=== PATIENT | male | born 1950 | race African-American/Black ===

== ENCOUNTER → 2016-11-01 | Outpatient (CLI) | payer MEDICARE, MEDICAID ==
[2016-11-01 12:35] LABS: MEAN CELL VOLUME 99.1 FL (80.0-100.0); MEAN CORPUSCULAR HEMOGLOBIN 33.5 PG (27.0-34.0); MEAN CORPUSCULAR HGB CONC 33.8 % (32.0-36.0); PLATELET COUNT 173 TH/MM3 (150-450); RED BLOOD COUNT 4.34 MIL/MM3 (4.50-5.90); RED CELL DISTRIBUTION WIDTH 13.7 % (11.6-17.2); REVIEW FLAG FINAL
[2016-11-01 13:05] LABS: ANION GAP 9 MEQ/L (5-15); AST (GOT) 22 U/L (15-37); BICARBONATE 23.9 MEQ/L (21.0-32.0); BLOOD UREA NITROGEN 18 MG/DL (7-18); CHLORIDE 106 MEQ/L (98-107); GLOMERULAR FILTRATION RATE 75 ML/MIN (>89); GLUCOSE,FASTING 117 MG/DL (74-99); POTASSIUM 3.8 MEQ/L (3.5-5.1); SODIUM (NA) 139 MEQ/L (136-145)
[2016-11-01 13:16] LABS: ALKALINE PHOSPHATASE 61 U/L (45-117); ALT (GPT) 23 U/L (12-78); HDL CHOLESTEROL 60.4 MG/DL (40.0-60.0); LDL CHOLESTEROL 69 MG/DL (0-99); TOTAL BILIRUBIN ADULT 0.6 MG/DL (0.2-1.0)
[2016-11-01 15:55] LABS: HEMOGLOBIN A1a 1.1 %; HEMOGLOBIN A1b 0.8 %; HEMOGLOBIN Ao 85.1 %; HEMOGLOBIN F 0.6 %; HEMOGLOBIN LA1C 2.1 %; HEMOGLOBIN P3 3.7 %
== END ==
LOC: ELAB 08:37
PROVIDERS: ATTEND Family Medicine
DX: N40.0 Benign prostatic hyperplasia without lower urinary tract symptoms (principal); F17.210 Nicotine dependence, cigarettes, uncomplicated; Z13.1 Encounter for screening for diabetes mellitus; Z12.5 Encounter for screening for malignant neoplasm of prostate
CPT/HCPCS: 36415; 80053; 80061; 83036; 84153; 84443; 85027